=== PATIENT | female | born 1965 | race Asian ===

== ENCOUNTER 2017-07-26 19:06 | Emergency (ER) | payer OTHER, SELFPAY ==
[2017-07-26 19:12] VITALS: BP 121/86; PULSE 85; RESP 16; TEMP 36.8; O2SAT 97; BMI 24.1
--- NOTE | 2017-07-26 19:19 | ED.URI ---
HPI - URI/Sore Throat <Hetal Phoenix PA-C - Last Filed: 07/26/17 20:40> General Chief Complaint: Upper Respiratory Symptoms Stated Complaint: COUGHING FOR A WEEK Time Seen by Provider: 07/26/17 19:19 Source: patient Mode of arrival: ambulatory Limitations: no limitations History of Present Illness HPI Narrative: This generally healthy 52-year-old complains of worsening upper respiratory symptoms. Eight days ago, she developed onset of cough and sore throat. She has had some headache and sore chest with her cough. She denies fever, chills, sweats, earache, wheeze, or dyspnea also states that sometimes it feels hard to take a full breath especially with coughing. She denies body aches. She saw her PCP on Saturday who gave her Tessalon, Maxalt for headache and have her start some [id number] cough medicine. She states that the sore throat has gotten progressively worse and it is getting harder to swallow. Cough is dry and keeping her from sleep at night. 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 Related Data Home Medications Medication Instructions Recorded Confirmed benzonatate 100 mg PO TID PRN 07/26/17 07/26/17 rizatriptan [Maxalt] 10 mg PO Q2-4H PRN 07/26/17 07/26/17 Previous Rx's Medication Instructions Recorded amoxicillin-pot clavulanate 1 tab PO Q12H #20 tab 07/26/17 [Augmentin] lidocaine HCl [Lidocaine Viscous] 10 ml MM Q3-4H PRN #100 ml 07/26/17 promethazine-codeine 5 ml PO Q4-6H PRN #118 ml 07/26/17 Review of Systems <Hetal Phoenix PA-C - Last Filed: 07/26/17 20:40> Review of Systems All systems reviewed & are unremarkable except as noted in HPI and below Exam <Hetal Phoenix PA-C - Last Filed: 07/26/17 20:40> Narrative Exam Narrative: GENERAL APPEARANCE: Patient sitting comfortably, in no distress. HEENT: PERRL, EOMI, normal TMs, erythematous oropharynx without exudate, mild generalized sinus TTP NECK: Supple with anterior cervical nodes, no posterior nodes LUNGS: Clear to auscultation bilaterally. HEART: Rate and rhythm regular without murmur, normal S1 and S2, no S3 or S4. CHEST: Mild generalized rib tenderness NEUROLOGIC: Alert and oriented, normal speech, gait and coordination. MUSCULOSKELETAL: Full Csp AROM Course <Hetal Phoenix PA-C - Last Filed: 07/26/17 20:40> Last Vital Signs Temp 98.2 F 07/26/17 19:12 Pulse 85 07/26/17 19:12 Resp 16 07/26/17 19:12 BP 121/86 H 07/26/17 19:12 Pulse Ox 97 07/26/17 19:12 <Rahul Forbes DO - Last Filed: 07/26/17 21:52> Last Vital Signs Temp 98.2 F 07/26/17 19:12 Pulse 85 07/26/17 19:12 Resp 16 07/26/17 19:12 BP 121/86 H 07/26/17 19:12 Pulse Ox 97 07/26/17 19:12 Discharge Plan Departure Patient Disposition: Home, Self-Care Clinical Impression: Acute pharyngitis, Cough headache Discharge Date/Time: 07/26/17 20:27 Interventions: ED Discharge Assessment Last Done: 07/26/17 20:27 Instructions: DI for Pharyngitis/Tonsillopharyngitis -- Adult Activity Restrictions/Additional Instructions: Return if you have any acutely worsening symptoms over the weekend as we have talked about. Otherwise, you can use the prescription cough syrup at nighttime to help with cough and sleep (do not drive as it may make you sleepy.) Start the antibiotic tonight, and you can use the throat numbing medicine as needed. See your PCP if not getting better next week Prescriptions: New promethazine-codeine 6.25-10 mg/5 mL syrup 5 ml PO Q4-6H PRN (Reason: cough) Qty: 118 RF: 0 lidocaine HCl [Lidocaine Viscous] 2 % solution 10 ml MM Q3-4H PRN (Reason: mouth pain) Qty: 100 RF: 0 amoxicillin-pot clavulanate [Augmentin] 875-125 mg tablet 1 tab PO Q12H Qty: 20 RF: 0 No Action rizatriptan [Maxalt] 10 mg Tablet 10 mg PO Q2-4H PRN (Reason: head) RF: 0 benzonatate 100 mg Capsule 100 mg PO TID PRN (Reason: Cough) RF: 0 Referrals: Carlos Deal CNP [Non-Staff] - <Rahul Forbes DO - Last Filed: 07/26/17 21:52> Cosign ED Attending Victor Hugo Attestation: I was available for consultation during this patient's emergency department encounter
== END 2017-07-26 20:27 | disposition home or self-care (01) ==
PROVIDERS: Emergency Provider Internal Medicine
DX: J02.9 Acute pharyngitis, unspecified (principal); R05 Cough; R51 Headache
CPT/HCPCS: 99282

== ENCOUNTER 2017-08-04 10:42 | Emergency (ER) | payer OTHER, SELFPAY ==
[2017-08-04 10:50] VITALS: BP 114/79; PULSE 78; RESP 18; TEMP 36.2; O2SAT 100; BMI 24.1
--- NOTE | 2017-08-04 10:58 | ED.SKABFB ---
HPI - Skin/Abscess/Foreign Bdy General Chief complaint: Skin/Abscess/Foreign Body Stated complaint: rash Time Seen by Provider: 08/04/17 10:58 Source: patient Mode of arrival: ambulatory Limitations: no limitations History of Present Illness HPI narrative: 52-year-old female seen here last Saturday and diagnosed with an upper respiratory infection sent home with amoxicillin here for evaluation of approximately 24 hr of a systemic rash. States that the rash is itching. States she still is coughing. Did not take her antibiotics yesterday. Has had nothing like this in the past. No problems breathing. No vomiting. Related Data Home Medications Medication Instructions Recorded Confirmed benzonatate 100 mg PO TID PRN 07/26/17 07/26/17 rizatriptan [Maxalt] 10 mg PO Q2-4H PRN 07/26/17 07/26/17 Previous Rx's Medication Instructions Recorded amoxicillin-pot clavulanate 1 tab PO Q12H #20 tab 07/26/17 [Augmentin] lidocaine HCl [Lidocaine Viscous] 10 ml MM Q3-4H PRN #100 ml 07/26/17 promethazine-codeine 5 ml PO Q4-6H PRN #118 ml 07/26/17 prednisone 20 mg PO DAILY #5 tab 08/04/17 Allergies Allergy/AdvReac Type Severity Reaction Status Date / Time No Known Drug Allergies Allergy Verified 08/04/17 10:50 Review of Systems Constitutional Denies chills, Denies fever(s), Denies lethargy and Denies weakness Eyes Denies change in vision, Denies eye discharge, Denies irritation and Denies loss of vision ENT Ears, Nose, Mouth, and Throat: Denies change in voice, Denies neck pain and Denies sore throat Cardiovascular Denies dyspnea and Denies dyspnea on exertion Respiratory Reports cough, Denies dyspnea, Denies dyspnea on exertion and Denies wheezing Gastrointestinal Gastrointestinal: Denies abdominal pain, Denies change in bowel habits, Denies diarrhea, Denies nausea and Denies vomiting Musculoskeletal Denies back pain, Denies muscle weakness, Denies neck pain, Denies numbness and Denies tingling Integumentary/Breasts Denies pruritus, Reports lesions, Denies erythema, Reports rash, Denies skin pain, Denies skin ulcer and Denies sores Neurologic Denies loss of vision, Denies numbness, Denies tingling and Denies weakness Hematologic/Lymphatic Denies easy bruising Allergic/Immunologic Denies wheezing [facility] Medical History Healthy adult (Chronic) Social History Smoking Status: Never smoker Exam Initial Vital Signs Initial Vital Signs: Vital Signs Temperature 97.2 F L 08/04/17 10:50 Pulse Rate 78 08/04/17 10:50 Respiratory Rate 18 08/04/17 10:50 Blood Pressure 114/79 08/04/17 10:50 Pulse Oximetry 100 08/04/17 10:50 Const General: cooperative and well developed Nutritional Appearance: well nourished Orientation: alert, awake, oriented x3 and not confused Eyes General: appearance normal, both eyes and all related structures Eyelids: eyelids normal Conjunctivae: conjunctivae normal Sclera: sclerae normal Pupils: PERRL EOM: EOM intact bilaterally Resp Effort & Inspection: normal respiratory effort, able to speak in complete sentences, no respiratory distress and no use of accessory muscles Auscultation: clear to auscultation bilaterally, no rales, no rhonchi and no wheezes Cardio Rate: regular rate Rhythm: regular rhythm Heart Sounds: no click, no gallops, no murmurs and no rubs Pulses: normal peripheral pulses Skin Rashes: rashes noted Hair: normal Other: Patient with systemic rash. Well demarcated. No blisters. No pustules. Blanching. Neuro General: alert, oriented x3, gait normal and no focal motor deficits Speech: speech normal Motor: strength 5/5 throughout Sensory Exam: no sensory deficits noted Extrem General: full ROM, no clubbing, cyanosis or edema, no pedal edema and no calf tenderness Course Vital Signs - 8 hr 08/04/17 10:50 Temperature 97.2 F L Pulse Rate 78 Respiratory Rate 18 Blood Pressure 114/79 Pulse Oximetry 100 MDM - Skin/Abscess/Foreign Bdy MDM Narrative Medical decision making narrative: Patient rash not consistent with anaphylaxis. Not consistent with zoster. Suspect it is related to the ABX and her URI. will send home with a shourt course of steroids. pt was given return precautions. she expressed understanding and agreement with plan. Discharge Plan Departure Patient Disposition: Home, Self-Care Clinical Impression: Rash and nonspecific skin eruption Instructions: DI for Rash Activity Restrictions/Additional Instructions: Take the medications as directed. Return to the emergency department for any new or worsening symptoms Prescriptions: New prednisone 20 mg tablet 20 mg PO DAILY Qty: 5 RF: 0 No Action rizatriptan [Maxalt] 10 mg Tablet 10 mg PO Q2-4H PRN (Reason: head) RF: 0 benzonatate 100 mg Capsule 100 mg PO TID PRN (Reason: Cough) RF: 0 promethazine-codeine 6.25-10 mg/5 mL syrup 5 ml PO Q4-6H PRN (Reason: cough) Qty: 118 RF: 0 lidocaine HCl [Lidocaine Viscous] 2 % solution 10 ml MM Q3-4H PRN (Reason: mouth pain) Qty: 100 RF: 0 amoxicillin-pot clavulanate [Augmentin] 875-125 mg tablet 1 tab PO Q12H Qty: 20 RF: 0
[2017-08-04 11:17] VITALS: BP 102/72; PULSE 72; RESP 15; O2SAT 100
== END 2017-08-04 11:26 | disposition home or self-care (01) ==
PROVIDERS: Emergency Provider Emergency Medicine
DX: R21 Rash and other nonspecific skin eruption (principal)
CPT/HCPCS: 99282

== ENCOUNTER 2018-04-21 10:27 | Emergency (ER) | payer OTHER, SELFPAY ==
[2018-04-21 10:31] VITALS: BP 108/73; PULSE 61; RESP 15; TEMP 36.1; O2SAT 100; BMI 23.0
--- NOTE | 2018-04-21 11:05 | ED.EYEPROB ---
HPI - Eye Problem General Chief complaint: Eye Problems Stated complaint: EYE PAIN AND ITCHING Time Seen by Provider: 04/21/18 10:54 Source: patient Mode of arrival: ambulatory Limitations: no limitations History of Present Illness HPI Narrative: Otherwise healthy 52-year-old female who wears glasses but does not wear contact here for evaluation of redness and irritation and clear drainage to her left eye. Patient states that this has been going on the past 24 hr. She states that a couple days ago she had the same symptoms in her right eye but those have cleared up. She does have a foreign body sensation. No trauma. No photophobia. No respiratory symptoms. No sinus congestion. Related Data Home Medications Medication Instructions Recorded Confirmed rizatriptan [Maxalt] 10 mg PO Q2-4H PRN 07/26/17 04/21/18 Previous Rx's Medication Instructions Recorded erythromycin 0.5 inch EYE-LEFT QID 6 Days #3.5 04/21/18 gram Allergies Allergy/AdvReac Type Severity Reaction Status Date / Time No Known Drug Allergies Allergy Verified 04/21/18 10:31 Review of Systems Constitutional Denies fever(s) Eyes Reports blurry vision, Denies diplopia, Reports irritation, Reports itchy eyes, Denies loss of vision, Denies eye pain and Denies photophobia ENT Ears, Nose, Mouth, and Throat: Denies sinus pain, Denies sinus pressure, Denies sore throat and Denies throat swelling Cardiovascular Denies chest pain and Denies dyspnea Respiratory Denies cough and Denies dyspnea Gastrointestinal Gastrointestinal: Denies abdominal pain, Denies nausea and Denies vomiting Musculoskeletal Denies myalgias and Denies arthralgias Integumentary/Breasts Denies rash Neurologic Denies loss of vision Hematologic/Lymphatic Comments: Not on anticoagulation Allergic/Immunologic Reports itchy eyes and Denies throat swelling PFSH Social History Smoking Status: Never smoker Exam Initial Vital Signs Initial Vital Signs: Vital Signs Temperature 97.0 F L 04/21/18 10:31 Pulse Rate 61 04/21/18 10:31 Respiratory Rate 15 04/21/18 10:31 Blood Pressure 108/73 04/21/18 10:31 Pulse Oximetry 100 04/21/18 10:31 Const General: cooperative, healthy appearing, comfortable, well developed, well groomed and No acute distress Orientation: alert, awake and oriented x3 HENMT Head: normocephalic Ears: TM's normal bilaterally Nose: external nose normal Face and sinus: normal facial exam Mouth: oral mucosae normal Eyes Other: Right eye is unremarkable. Left eye has redness and irritation. No uptake with fluorescein stain. No foreign body seen. Does have chemosis. Neck Lymphatic: No lymphadenopathy Resp Effort & Inspection: normal respiratory effort Cardio Rate: regular rate Skin Lesions: no lesions Rashes: no rashes Neuro General: alert, awake and oriented x3 Extrem General: normal to inspection and capillary refill normal Psych Appearance: grossly normal and well kempt Course Vital Signs - 8 hr 04/21/18 10:31 Temperature 97.0 F L Pulse Rate 61 Respiratory Rate 15 Blood Pressure 108/73 Pulse Oximetry 100 MDM - Eye Problem MDM Narrative Medical decision making narrative: Patient with history and physical exam consistent with pinkeye. No signs of zoster. Does not wear contacts. Will send home with erythromycin ointment. No foreign body seen. No signs of corneal abrasion. Patient was given return precautions. She expressed understanding and agreement with plan. Discharge Plan Departure Patient Disposition: Home Clinical Impression: Conjunctivitis Discharge Date/Time: 04/21/18 11:34 Interventions: ED Discharge Assessment Last Done: 04/21/18 11:25 Instructions: Conjunctivitis Activity Restrictions/Additional Instructions: I do recommend use the antibiotic ointment as directed. Try her best not to rub URI and if you do make sure you are washing her hands frequently. Contact your primary care doctor for a follow-up. Return to the emergency department for any new or worsening symptoms Prescriptions: New erythromycin 5 mg/gram (0.5 %) ointment 0.5 inch EYE-LEFT QID 6 Days Qty: 3.5 RF: 0 No Action rizatriptan [Maxalt] 10 mg Tablet 10 mg PO Q2-4H PRN (Reason: Headache) RF: 0 Stand Alone Forms: Work Release Note
== END 2018-04-21 11:34 | disposition home or self-care (01) ==
PROVIDERS: Emergency Provider Emergency Medicine
DX: H10.9 Unspecified conjunctivitis (principal)
CPT/HCPCS: 99282

== ENCOUNTER 2021-07-01 07:00 | Emergency (ER) | payer OTHER, SELFPAY ==
--- NOTE | 2021-07-01 07:42 | ED_ITS ---
HPI - General Adult General Chief complaint: Upper Respiratory Symptoms Stated complaint: cough Time Seen by Provider: 07/01/21 07:16 History of Present Illness HPI narrative: 55-year-old woman with no significant medical history who was diagnosed with COVID on June 05 mild cough initially she thought it was allergies. Cough is minimally productive but has persisted and at this point is causing her to lose sleep in become more fatigued because of the work of coughing. She is not complaining of feeling short of breath, no fevers, abdominal pain, vomiting, diarrhea, headaches, lower extremity edema, cognitive changes or neurologic complaints. Related Data Home Medications Medication Instructions Recorded Confirmed rizatriptan 10 mg tablet (Maxalt) 10 mg PO Q2-4H PRN 07/26/17 04/21/18 Previous Rx's Medication Instructions Recorded benzonatate 100 mg capsule 100 mg PO BID-TID PRN #14 cap 07/01/21 Allergies Allergy/AdvReac Type Severity Reaction Status Date / Time No Known Drug Allergies Allergy Verified 04/21/18 10:31 Review of Systems Review of Systems Narrative: Remainder of complete review of systems is otherwise unremarkable except for that included in the HPI. Patient History Medical History (Updated 07/01/21 @ 09:02 by Consuelo Cortes MD) COVID Healthy adult Social History Smoking Status: Never smoker Smoking Status: Never smoker alcohol intake frequency: other Substance Use Type: does not use Exam Initial Vital Signs Initial Vital Signs: Vital Signs Temperature 98.1 F 07/01/21 07:47 Pulse Rate 80 07/01/21 07:47 Respiratory Rate 16 07/01/21 07:47 Blood Pressure 114/74 07/01/21 07:47 Pulse Oximetry 97 07/01/21 07:47 General: Healthy appearing, in no acute distress. Able to give a complete and coherent history. Well-nourished well-developed HEENT: Moist mucous membranes, normal sclera with reactive pupils, Neck: No JVD, supple Respiratory: Lungs are clear to auscultation, no wheezing no rales no rhonchi. Full and symmetrical air movement Cardiac: Regular rate and rhythm no murmurs no bruits Abdomen: Soft, nontender, good bowel tones, no flank pain Skin: Warm and dry, no rashes Neurologic: Grossly neurologically intact with no obvious asymmetries or abnormalities Extremities: No trauma, well perfused Psych: Cooperative, appropriate insight and affect Course Orders Ordered: Discontinued Medications Albuterol (Albuterol Hfa Mdi 60 Puff/8 Gm Inhaler) 2 puff INH NOW ONE Stop: 07/01/21 07:28 Last Admin: 07/01/21 07:48 Dose: 2 puff Documented by: NIGEL Benzonatate (Benzonatate 100 Mg Capsule) 100 mg PO NOW ONE Stop: 07/01/21 07:29 Last Admin: 07/01/21 07:59 Dose: 100 mg Documented by: POLLY Vital Signs Vital signs: Vital Signs - 8 hr 07/01/21 07:47 Temperature 98.1 F Pulse Rate 80 Respiratory Rate 16 Blood Pressure 114/74 Pulse Oximetry 97 Medical Decision Making [facility] Narrative Medical decision making narrative: 55-year-old woman 21 days after initial COVID symptoms with continued persistent cough and no other concerning findings with excellent oxygenation. A albuterol nebulizer was attempted with minimal to mild results and helping with cough. She was also given some Tessalon Perles. At this point I do not suggest significant complications including no evidence clinically of pulmonary embolism, acute coronary syndrome cardiomyopathy or myocarditis, no bacterial pneumonia. Reassurance is given questions are answered. Discharge Plan Departure Patient Disposition: Home Clinical Impression: COVID-19 Instructions: DI for Cough -- Adult Activity Restrictions/Additional Instructions: Thank you for coming in today Fortunately, you are not showing any life-threatening signs or symptoms after your recent COVID infection and your oxygenation levels are reassuring. The cough can continue for an extended period of time. If you find that the albuterol nebulizer is helpful after your having a significant coughing episode, please use 2 puffs as needed. In the meantime Tessalon Perles can also be helpful in suppressing the cough. Prescription was electronically transmitted to [facility] At this time, you are no longer infectious for COVID. If you have worsening symptoms or new findings, please return to the ER Prescriptions: New benzonatate 100 mg capsule 100 mg PO BID-TID PRN (Reason: cough) Qty: 14 0RF No Action rizatriptan [Maxalt] 10 mg Tablet 10 mg PO Q2-4H PRN (Reason: Headache) 0RF
[2021-07-01 07:47] VITALS: BP 114/74; PULSE 80; RESP 16; TEMP 36.7; O2SAT 97; BMI 24.7
[2021-07-01] MEDS: ALBUTEROL HFA MDI 60 PUFF/8 GM INHALER INH (07:48)
[2021-07-01] MEDS: BENZONATATE 100 MG CAPSULE PO (07:59)
[2021-07-01 09:15] VITALS: BP 102/64; PULSE 70; RESP 14; O2SAT 96
== END 2021-07-01 09:16 | disposition home or self-care (01) ==
PROVIDERS: Emergency Provider Emergency Medicine
DX: U07.1 COVID-19 (principal)
CPT/HCPCS: 99283; A9270

== ENCOUNTER → 2023-01-13 13:43 | Outpatient (CLI) | payer OTHER, SELFPAY | PROVIDERS: Visit Provider Nurse Practitioner Family | DX: J02.9 Acute pharyngitis, unspecified (principal) | CPT/HCPCS: 87070 ==

== ENCOUNTER 2023-04-06 10:48 | Emergency (ER) | payer OTHER, SELFPAY ==
[2023-04-06 11:01] VITALS: BP 136/81; PULSE 111; PULSE 93; RESP 18; TEMP 37.5; O2SAT 98; O2SAT 99; BMI 25.4
[2023-04-06 11:02] VITALS: BP 138/87; PULSE 95; O2SAT 99
--- NOTE | 2023-04-06 11:26 | DI.RAD.S_ITS ---
PROCEDURE: XR CHEST 2V INDICATIONS: cough x 1 month TECHNIQUE: 2 views of the chest were acquired. COMPARISON: None. FINDINGS: Surgical changes and devices: None. Lungs and pleura: Lungs are clear. No pleural effusions or pneumothorax. Mediastinum: Mediastinal contours are normal. Heart size is normal. Bones and chest wall: No suspicious bony abnormalities. Soft tissues appear unremarkable. IMPRESSION: No acute cardiopulmonary abnormality is seen. Approved by: Victor Manuel Guido M.D. on 04/06/2023 at 12:30
[2023-04-06 11:56] LABS: Adenovirus Not Detected (Not Detect); B. parapertussis Not Detected (Not Detecte); Bordetella pertussis Not Detected (Not Detect); Chlamydophila pneumoniae Not Detected (Not Detect); Coronavirus 229E Not Detected (Not Detect); Coronavirus HKU1 Not Detected (Not Detect); Coronavirus NL 63 Not Detected (Not Detect); Coronavirus OC43 Not Detected (Not Detect); Human Metapneumovirus Not Detected (Not Detect); Human Rhinovirus/Enterovirus Not Detected (Not Detect); Influenza A Not Detected (Not Detect); Influenza B Not Detected (Not Detect); Mycoplasma pneumoniae Not Detected (Not Detect); Parainfluenza Virus 1 Not Detected (Not Detect); Parainfluenza Virus 2 Not Detected (Not Detect); Parainfluenza Virus 3 Not Detected (Not Detect); Parainfluenza Virus 4 Not Detected (Not Detect); Respiratory Syncytial Virus Not Detected (Not Detect)
[2023-04-06 12:08] LABS: SARS- CoV-2 Detected (Not Detecte)
--- NOTE | 2023-04-06 12:08 | ED_ITS ---
HPI - URI/Sore Throat <Belen Mcclain PA-C - Last Filed: 04/06/23 15:40> General Chief Complaint: Upper Respiratory Symptoms Stated Complaint: cough t-30, chest pain, sore throat Time Seen by Provider: 04/06/23 11:08 Source: patient Mode of arrival: Ambulatory History of Present Illness HPI Narrative: 57-year-old female with no significant past medical history here today for 2-3 months of coughing. States it started back in December with runny nose and nasal congestion as well. She was seen at the walk-in clinic and prescribed Tessalon which did not help. She was then seen again in [place] a few weeks later and prescribed albuterol and another cough medicine. States albuterol helps a little bit but the cough persists especially at night. She was then seen a few weeks later at another urgent care and prescribed some type of antibiotics. She does not recall the name but she took 1 dose and it made her feel sick so she did not continue taking it. Since then she has continued the albuterol off and on for her cough which helps a little bit but the cough is worse at night. She no longer has any nasal congestion, runny nose, itchy watery eyes, sore throat, or any other symptoms. Denies any shortness of breath or wheezing. She does report intermittent chills and sweats but no unintended weight loss. No travel outside the [place] prior to the onset. She denies any symptoms of acid reflux suc h as epigastric pain, esophagitis, etc.. Related Data Home Medications Medication Instructions Recorded Confirmed rizatriptan 10 mg tablet (Maxalt) 10 mg PO Q2-4H PRN Headache 07/26/17 04/21/18 Previous Rx's Medication Instructions Recorded benzonatate 100 mg capsule 100 mg PO BID-TID PRN cough #14 07/01/21 caps benzonatate 100 mg capsule 100 mg PO BID PRN cough #20 caps 01/13/23 fluticasone propionate 50 1 spray intranasal Q12H #16 grams 01/13/23 mcg/actuation nasal spray,suspension (Flonase Allergy Relief) fluticasone propionate 110 1 puff inhalation BID #12 grams 04/06/23 mcg/actuation HFA aerosol inhaler (Flovent HFA) Allergies Allergy/AdvReac Type Severity Reaction Status Date / Time No Known Drug Allergies Allergy Verified 04/06/23 11:04 Review of Systems <Belen Mcclain PA-C - Last Filed: 04/06/23 15:40> Review of Systems ROS Unobtainable: All systems reviewed & are unremarkable except as noted in HPI and below Patient History <Belen Mcclain PA-C - Last Filed: 04/06/23 15:40> Medical History (Updated 04/06/23 @ 13:02 by Belen Mcclain PA-C) COVID Healthy adult Social History Smoking Status: Never smoker Smoking Status: Never smoker alcohol intake frequency: other Substance Use Type: does not use Exam <Belen Mcclain PA-C - Last Filed: 04/06/23 15:40> Narrative Exam Narrative: GENERAL: 57 year old patient appears stated age. Well-developed patient, in no acute distress. HEAD: Atraumatic. Normocephalic. EYES: Pupils equal round and reactive. Extraocular motions intact. No scleral icterus. No injection or drainage. ENT: Nose without bleeding, purulent drainage. Throat without erythema, tonsillar hypertrophy or exudate. Airway patent. NECK: Trachea midline. Non tender CARDIOVASCULAR: Regular rate and rhythm without murmurs, gallops, or rubs. RESPIRATORY: Clear to auscultation. Breath sounds equal bilaterally. No wheezes, rales, or rhonchi. GASTROINTESTINAL: Abdomen soft, non-tender, nondistended. EXTREMITIES: No edema or joint tenderness. BACK: Nontender without deformity or crepitus. No flank tenderness. NEURO: AOx3. SKIN: No rash or erythema of visible areas Initial Vital Signs Initial Vital Signs: Vital Signs Temperature 99.5 F 04/06/23 11:01 Pulse Rate 111 H 04/06/23 11:01 Respiratory Rate 18 04/06/23 11:01 Blood Pressure 136/81 04/06/23 11:01 Pulse Oximetry 98 04/06/23 11:01 Oxygen Delivery Method Room Air 04/06/23 11:01 <Amada Moncada MD - Last Filed: 04/06/23 16:01> Initial Vital Signs Initial Vital Signs: Vital Signs Temperature 99.5 F 04/06/23 11:01 Pulse Rate 111 H 04/06/23 11:01 Respiratory Rate 18 04/06/23 11:01 Blood Pressure 136/81 04/06/23 11:01 Pulse Oximetry 98 04/06/23 11:01 Oxygen Delivery Method Room Air 04/06/23 11:01 Course <Belen Mcclain PA-C - Last Filed: 04/06/23 15:40> Orders Ordered: ED Orders 04/06/23 11:01 Respiratory Panel (Film Array) Stat 04/06/23 11:26 XR chest 2V Stat Vital Signs Vital signs: Vital Signs - 8 hr 04/06/23 11:01 04/06/23 11:01 04/06/23 11:02 Temperature 99.5 F Pulse Rate 111 H 93 H 95 H Respiratory Rate 18 Blood Pressure 136/81 Pulse Oximetry 98 99 99 Oxygen Delivery Method Room Air 04/06/23 11:02 04/06/23 13:05 Temperature 100.4 F H Pulse Rate 89 Respiratory Rate 26 H Blood Pressure 138/87 133/75 Pulse Oximetry 98 Oxygen Delivery Method Room Air <Amada Moncada MD - Last Filed: 04/06/23 16:01> Orders Ordered: ED Orders 04/06/23 11:01 Respiratory Panel (Film Array) Stat 04/06/23 11:26 XR chest 2V Stat Vital Signs Vital signs: Vital Signs - 8 hr 04/06/23 11:01 04/06/23 11:01 04/06/23 11:02 Temperature 99.5 F Pulse Rate 111 H 93 H 95 H Respiratory Rate 18 Blood Pressure 136/81 Pulse Oximetry 98 99 99 Oxygen Delivery Method Room Air 04/06/23 11:02 04/06/23 13:05 Temperature 100.4 F H Pulse Rate 89 Respiratory Rate 26 H Blood Pressure 138/87 133/75 Pulse Oximetry 98 Oxygen Delivery Method Room Air MDM - URI/Sore Throat <Belen Mcclain PA-C - Last Filed: 04/06/23 15:40> Lab Data Labs: Lab Results 04/06/23 Range/Units 11:01 Chlamy pneumoniae PCR Not detected (Not Detect) Adenovirus (PCR) Not detected (Not Detect) B.parapertussis DNA PCR Not detected (Not Detecte) Coronavirus OC43 (PCR) Not detected (Not Detect) Coronavirus HKU1 (PCR) Not detected (Not Detect) Coronavirus 229E (PCR) Not detected (Not Detect) SARS-CoV-2 (PCR) Detected H (Not Detecte) Coronavirus NL63 (PCR) Not detected (Not Detect) Human Metapneumovir PCR Not detected (Not Detect) Influenza Type A (PCR) Not detected (Not Detect) Influenza Type B (PCR) Not detected (Not Detect) M. pneumoniae (PCR) Not detected (Not Detect) Parainfluenza 1 (PCR) Not detected (Not Detect) Parainfluenza 2 (PCR) Not detected (Not Detect) Parainfluenza 3 (PCR) Not detected (Not Detect) Parainfluenza 4 (PCR) Not detected (Not Detect) RSV (PCR) Not detected (Not Detect) Entero/Rhino (PCR) Not detected (Not Detect) Imaging Data Chest x-ray: Radiologist's Impression: [address] [address] XRay Report Signed Patient: Ilene An MR#: [id number] : 1965 Acct:[id number] Age/Sex: 57 / F Date of Service: 04/06/23 Loc: ED Accession Number: [id number] Procedure: XR chest 2V Ordering Provider: Belen Mcclain P.A-C PROCEDURE: XR CHEST 2V INDICATIONS: cough x 1 month TECHNIQUE: 2 views of the chest were acquired. COMPARISON: None. FINDINGS: Surgical changes and devices: None. Lungs and pleura: Lungs are clear. No pleural effusions or pneumothorax. Mediastinum: Mediastinal contours are normal. Heart size is normal. Bones and chest wall: No suspicious bony abnormalities. Soft tissues appear unremarkable. IMPRESSION: No acute cardiopulmonary abnormality is seen. Approved by: Victor Manuel Guido M.D. on 04/06/2023 at 12:30 MDM Narrative Medical decision making narrative: Patient has unremarkable vital signs except for a low-grade fever. No respiratory distress. Speaking in full sentences. Normal lung exam. Nontoxic. Her chest x-ray is clear. She did test positive for COVID today. She has been coughing for several months so it is unclear if this is a new or old COVID infection. She does report worsening over the last several days so perhaps she already had a postviral cough and then caught COVID in addition to that. Either way her presentation is consistent with a postviral cough or reactive airway disease. She has no symptoms of GERD or esophagitis. She has no evidence of a lower respiratory tract problem. Recommend she try Flovent in addition to the albuterol as well as an antihistamine like Claritin or Zyrtec. If failing to improve in 1-2 weeks she may follow up with her primary care physician. Multiple etiologies for patient's symptoms considered including, but not limited to: Bronchitis, pneumonia, COVID, allergies, GERD, reactive airway disease Patient's symptoms improved over duration of stay with above-stated therapies. Findings and discharge diagnosis discussed with patient/family followed by verbalization of understanding Return precautions discussed with patient/family whom verbalize understanding of diagnosis and plan <Amada Moncada MD - Last Filed: 04/06/23 16:01> Lab Data Labs: Lab Results 04/06/23 Range/Units 11:01 Chlamy pneumoniae PCR Not detected (Not Detect) Adenovirus (PCR) Not detected (Not Detect) B.parapertussis DNA PCR Not detected (Not Detecte) Coronavirus OC43 (PCR) Not detected (Not Detect) Coronavirus HKU1 (PCR) Not detected (Not Detect) Coronavirus 229E (PCR) Not detected (Not Detect) SARS-CoV-2 (PCR) Detected H (Not Detecte) Coronavirus NL63 (PCR) Not detected (Not Detect) Human Metapneumovir PCR Not detected (Not Detect) Influenza Type A (PCR) Not detected (Not Detect) Influenza Type B (PCR) Not detected (Not Detect) M. pneumoniae (PCR) Not detected (Not Detect) Parainfluenza 1 (PCR) Not detected (Not Detect) Parainfluenza 2 (PCR) Not detected (Not Detect) Parainfluenza 3 (PCR) Not detected (Not Detect) Parainfluenza 4 (PCR) Not detected (Not Detect) RSV (PCR) Not detected (Not Detect) Entero/Rhino (PCR) Not detected (Not Detect) Discharge Plan Departure Patient Disposition: Home Clinical Impression: COVID-19, Post-viral cough syndrome Instructions: DI for Reactive Airway Disease-Adult, COVID-19 Activity Restrictions/Additional Instructions: You were seen today for a cough. Your chest x-ray was normal. You did test positive for COVID today. Please avoid going to work for the next 5 days, I would when you do return please wear a mask for an additional 5 days. Due to your normal vital signs and normal chest x-ray I believe your cough is due to a post viral reactive airway problem which causes inflammation in your upper airways. Please use the steroid inhaler as prescribed twice daily. Please also take Claritin or Zyrtec once daily. If your symptoms have failed to improve at all in the next 2 weeks please follow up with your primary care physician to discuss the next step. Prescriptions: New fluticasone propionate [Flovent HFA] 110 mcg/actuation HFA aerosol inhaler 1 puff inhalation BID Qty: 12 0RF No Action fluticasone propionate [Flonase Allergy Relief] 50 mcg/actuation spray,suspension 1 spray intranasal Q12H Qty: 16 0RF Rx Instructions: administer into each nostril benzonatate 100 mg capsule 100 mg PO BID PRN (Reason: cough) Qty: 20 0RF benzonatate 100 mg capsule 100 mg PO BID-TID PRN (Reason: cough) Qty: 14 0RF rizatriptan [Maxalt] 10 mg Tablet 10 mg PO Q2-4H PRN (Reason: Headache) Referrals: Miscellaneous,Doctor, MD [Primary Care Provider] - Stand Alone Forms: Patient Portal/API ED Sign-out <Amada Moncada MD - Last Filed: 04/06/23 16:01> Cosign ED Attending Victor Hugo Attestation: I DID NOT SEE THIS PATIENT. I WAS AVAILABLE ALL TIMES FOR CONSULTATION.
--- NOTE | 2023-04-06 12:26 | PC.NURSE ---
provider aware of positive result
[2023-04-06 13:05] VITALS: BP 133/75; PULSE 89; RESP 26; TEMP 38; O2SAT 98
== END 2023-04-06 13:12 | disposition home or self-care (01) ==
PROVIDERS: Emergency Medicine; Emergency Provider Physician Assistant
DX: U07.1 COVID-19 (principal); G93.31 Postviral fatigue syndrome
CPT/HCPCS: 71046; 87633; 99283